=== PATIENT | female | born 1945 | race Caucasian/White ===

== ENCOUNTER 2016-09-10 13:09 | Inpatient (IN) | payer MEDICARE ==
[~2016-09-10] VITALS: Ht 147.3 cm; Wt 103.6 kg
[~2016-09-10 13:09] MED LIST: BENA25CA4 PO; BIOT50006 PO; CALCTAB36 PO; IBUP200C17 PO; LEVO125T4 PO; VITA10004 PO
[2016-09-13] MEDS ORDERED: metroNIDAZOLE 500 MG INJ 100 ML IV SCH (05:45)
[2016-09-13] MEDS ORDERED: ACETAMINOPHEN 1000 MG/100 ML VIAL IV SCH (05:45)
[2016-09-13] MEDS ORDERED: ONDANSETRON HCL 4 MG/2 ML VIAL IV PUSH SCH (05:45)
[2016-09-13] MEDS ORDERED: ceFAZolin 2 GM PREMIX 50 ML IV SCH (05:45)
[2016-09-13] MEDS ORDERED: APREPITANT 40 MG CAP PO SCH (05:45)
[2016-09-13] MEDS ORDERED: SCOPOLAMINE 1.5 MG PATCH T-DERMAL SCH (05:45)
[2016-09-13] MEDS ORDERED: METOPROLOL TARTRATE 25 MG TAB PO PRN (06:00)
[2016-09-13] MEDS ORDERED: LACTATED RINGER'S 1000 ML IV PRN (06:00)
[2016-09-13] MEDS ORDERED: CHLORHEXIDINE GLUCONATE 2 % 1 PACK (2 CLOTHS) TOPICAL PRN (06:00)
[2016-09-13] MEDS ORDERED: SODIUM CHLORID 0.9% 500 ML IV PRN (06:00)
[2016-09-13] MEDS ORDERED: INSULIN HUMAN REGULAR 1,000 UNITS/10 ML VIAL SQ PRN (06:00)
[2016-09-13] MEDS ORDERED: POVIDONE IODINE 5% (ANTISEPSIS KIT) 4 APPLICATIONS EACH NARE PRN (06:00)
[2016-09-13] MEDS ORDERED: BIOTCAP PO (07:28)
[2016-09-13 07:30] VITALS: BP 144/85; PULSE 71; RESP 16; TEMP 97.8; O2SAT 96
[2016-09-13] MEDS ORDERED: PROPOFOL 200 MG/20 ML AMP IV ONE (07:33)
[2016-09-13] MEDS ORDERED: ePHEDrine/NS 25 MG/5 ML SYR IV ONE (07:33)
[2016-09-13] MEDS ORDERED: PHENYLEPH/NS 1000 MCG/10 ML SYR IV ONE (07:34)
[2016-09-13] MEDS ORDERED: ONDANSETRON HCL 4 MG/2 ML VIAL IV PUSH ONE (07:34)
[2016-09-13] MEDS ORDERED: NEOSTIGMINE 3 MG/3 ML SYR IV ONE (07:34)
[2016-09-13] MEDS ORDERED: LACTATED RINGER'S 1000 ML INJ 2,000 ML IV ONE (07:35)
[2016-09-13] MEDS ORDERED: FAMOTIDINE 20 MG/2 ML VIAL ONE (09:36)
[2016-09-13] MEDS ORDERED: MIDAZOLAM HCL 2 MG/2 ML VIAL ONE (09:36)
[2016-09-13] MEDS ORDERED: BUPIVACAINE/EPINEPHRINE 0.25% 50 ML VIAL INFIL ONE (10:34)
[2016-09-13] MEDS ORDERED: METHYLENE BLUE 100 MG/10 ML VIAL NG ONE (10:35)
[2016-09-13] MEDS ORDERED: DO NOT ADM ANY ANTICOAGULANT DRUGS PRN (12:14)
[2016-09-13] MEDS ORDERED: Post-op Orders (for Pharmacy) MISC OTHER ONE (12:15)
[2016-09-13] MEDS ORDERED: diphenhydrAMINE HCL 50 MG/ML VIAL IV PRN (12:15)
[2016-09-13] MEDS ORDERED: ACETAMINOPHEN 325MG/HYDROcodone 7.5MG/15ML UDC PO PRN (12:15)
[2016-09-13] MEDS ORDERED: MORPHINE SULFATE 30 MG/30 ML PCA IV SCH (12:15)
[2016-09-13] MEDS ORDERED: ENALAPRILAT 1.25 MG/ML VIAL IV PUSH PRN (12:15)
[2016-09-13] MEDS ORDERED: ONDANSETRON HCL 4 MG/2 ML VIAL IV PRN (12:15)
[2016-09-13] MEDS ORDERED: SODIUM CHLORIDE 0.9% FLUSH 10 ML FLUSH IV FLUSH PRN (12:15)
[2016-09-13] MEDS ORDERED: diphenhydrAMINE HCL ELIXIR 12.5 MG/5 ML CUP PO PRN (12:15)
[2016-09-13] MEDS ORDERED: NALOXONE HCL 0.4 MG/ML AMP IV PRN (12:15)
[2016-09-13] MEDS ORDERED: fentaNYL CITRATE 250 MCG/5 ML AMP ONE (12:21)
[2016-09-13] MEDS ORDERED: *morphine SULFATE 8 MG/ML PERIprocedure ONLY ONE (12:24)
[2016-09-13] MEDS: D5-1/2 NS + KCL 20 MEQ INJ 1,000 ML IV SCH ×2 (12:30→19:35)
[2016-09-13] MEDS: METOCLOPRAMIDE HCL 10 MG/2 ML VIAL IV PUSH SCH ×2 (12:30→17:17)
--- NOTE | 2016-09-13 13:35 | MP ---
cc: SHAMIRSATNAM DATE OF 1945 DATE OF OPERATION 09/13/2016 PREOPERATIVE DIAGNOSIS Morbid obesity with a BMI of 48. POSTOPERATIVE DIAGNOSIS Morbid obesity with a BMI of 48. PROCEDURE Laparoscopic vertical sleeve gastrectomy over a 38-Citizen Of [place] ViSiGi bougie. SURGEON Satnam Persaud MD SOCIAL [employer]AC[employer]Y MEMBER DO Dr. Ed Valle was necessary for assistance during the procedure due to the complexity of the procedure. Dr. Ward was utilized for exposure and manipulation during the procedure. The educational assistant teacher provided by the hospital was utilized at the back table and management of the camera. ANESTHESIA General endotracheal anesthesia. ESTIMATED BLOOD LOSS 650 cc. FINDINGS Fatty liver, dilated veins at the GE junction. During the manipulation there was bleeding. This was controlled with hemoclips. SPECIMENS None. COMPLICATIONS None. PROCEDURE IN DETAIL The patient was brought to the operating room and placed on the operating table in supine position, bilateral sequential inflation device placed on lower extremities. General anesthesia was instituted. Antibiotics was initiated. The abdomen was prepped and draped sterilely. A point 15 cm distal to the xiphoid in the midline was anesthetized with 0.25% Marcaine with epinephrine. A skin incision was made, 5-mm OptiView port placed under direct vision and pneumoperitoneum created. Under direct vision, three 5-mm left upper quadrant, a 15-mm right upper quadrant, 5-mm right upper quadrant ports placed. Prior to placement of all ports the skin and peritoneum were anesthetized with 0.25% Marcaine with epinephrine. The patient was placed in reverse Trendelenburg position left side up, the Jasmyne-Flex retractor was placed. The left lobe of the liver was retracted. The vasculature along the greater curvature of the stomach was using harmonic scalpel starting a distance 5-cm proximal to the pylorus and carried towards the angle of His. The angle of His was taken down bluntly. Posterior ligamentous attachments were sharply . A 36-Citizen [place] ViSiGi bougie was placed at the start of the case, was placed on suction. Division of the stomach started 5 cm proximal to the pylorus and carried towards the angle of His to completely excise approximately 80% of the stomach. This was performed using an [place] Flex stapler at the pylorus. The first firing was with a black load, followed by a green load and three gold loads. All staple loads were reinforced with SeamGuard. A distance of 2 cm was left from the angle incisura and the staple line and a distance of 1 cm left from the GE junction and the staple line. The pylorus was then occluded, methylene blue tinged saline was instilled. There was no evidence of extravasation. The gastrocolic ligament was then sutured to the posterior leaflet of the SeamGuard using a 2-0 Vicryl suture in a running manner. Bleeding points were controlled with Evicel. The excised stomach was removed from the peritoneal cavity through the 15-mm port site. The fascia at the 15-mm port site was approximated with 0 Vicryl suture. The CO2 was then released, all ports were removed, all skin incisions closed with 4-0 Monocryl. The abdominal wall was cleaned. A sterile dressing was placed. The patient was awakened and taken to the recovery room. MD HELENE Nichols/SENG /12:13 PM /1:32 PM [email or web address]
[2016-09-13] MEDS: PCA - TOTAL MG MORPHINE DELIVERED PER SHIFT SCH ×2 (14:00→22:00)
[2016-09-13 16:10] VITALS: BP 124/51; PULSE 76; RESP 20; TEMP 96.4; O2SAT 96
[2016-09-13 17:01] VITALS: O2SAT 96
[2016-09-13] MEDS: RESP: ALBUTEROL 2.5 MG/3 ML NEB (SCH) INH ×3 (17:01→23:32)
[2016-09-13] MEDS: ENOXAPARIN SODIUM 40 MG/0.4 ML SYRINGE SQ SCH (17:19)
[2016-09-13] MEDS: metroNIDAZOLE 500 MG INJ 100 ML IV SCH (17:19)
[2016-09-13] MEDS: SODIUM CHLORIDE 0.9% FLUSH 10 ML FLUSH IV FLUSH SCH (19:33)
[2016-09-13 20:00] VITALS: BP 112/55; PULSE 64; RESP 18; TEMP 97.6; O2SAT 95
[2016-09-14] VITALS: BP 128/58; PULSE 65; RESP 21; TEMP 97; O2SAT 95
[2016-09-14] MEDS: metroNIDAZOLE 500 MG INJ 100 ML IV SCH ×2 (01:02→08:46)
[2016-09-14] MEDS: METOCLOPRAMIDE HCL 10 MG/2 ML VIAL IV PUSH SCH ×2 (01:02→05:27)
[2016-09-14] MEDS: RESP: ALBUTEROL 2.5 MG/3 ML NEB (SCH) INH ×6 (03:41→23:28)
[2016-09-14 04:00] VITALS: BP 105/52; PULSE 89; RESP 20; TEMP 97; O2SAT 94
[2016-09-14] MEDS: D5-1/2 NS + KCL 20 MEQ INJ 1,000 ML IV SCH ×3 (05:27→20:30)
[2016-09-14 05:35] LABS: AUTOMATED NEUTROPHIL # 6.2 TH/MM3 (1.8-7.7); BASOPHIL # 0.1 TH/MM3 (0-0.2); BASOPHIL % 0.8 % (0.0-2.0); EOSINOPHIL % 0.6 % (0.0-4.0); HEMO FLAGS DIFF FINAL; LYMPH % 12.1 % (9.0-44.0); MEAN CELL VOLUME 94.5 FL (80.0-100.0); MEAN CORPUSCULAR HEMOGLOBIN 30.4 PG (27.0-34.0); MEAN CORPUSCULAR HGB CONC 32.2 % (32.0-36.0); MONO % 9.4 % (0.0-8.0); NEUT % 77.1 % (16.0-70.0); PLATELET COUNT 172 TH/MM3 (150-450); WHITE BLOOD COUNT 8.1 TH/MM3 (4.0-11.0)
[2016-09-14] MEDS: PCA - TOTAL MG MORPHINE DELIVERED PER SHIFT SCH (06:00)
[2016-09-14 06:06] LABS: BICARBONATE 23.6 MEQ/L (21.0-32.0); MAGNESIUM 1.9 MG/DL (1.5-2.5)
[2016-09-14 06:07] LABS: POTASSIUM 4.1 MEQ/L (3.5-5.1)
[2016-09-14 08:00] VITALS: BP 130/84; PULSE 66; RESP 16; TEMP 97.5; O2SAT 92
[2016-09-14] MEDS: PANTOPRAZOLE SOD 40 MG DELAYED RELEASE TAB PO SCH (08:44)
[2016-09-14] MEDS: SODIUM CHLORIDE 0.9% FLUSH 10 ML FLUSH IV FLUSH SCH ×2 (08:47→21:00)
[2016-09-14] MEDS: ACETAMINOPHEN 325MG/HYDROcodone 7.5MG/15ML UDC PO PRN ×2 (10:36→18:20)
--- NOTE | 2016-09-14 11:48 | HHI.PR ---
Subjective Subjective Notes 70yo female POD#1 VSG. Sitting up in bed. Tolerating fluids. Voices no complaints Objective Vitals/I&O Vital Signs Date Time Temp Pulse Resp B/P Pulse Ox O2 Delivery O2 Flow Rate FiO2 09/14/16 08:29 21 09/14/16 08:00 97.5 66 16 130/84 92 09/13/16 15:30 Room Air 09/13/16 14:30 2 Labs Laboratory Tests Test 09/14/16 05:00 White Blood Count 8.1 Red Blood Count 3.60 Hemoglobin 11.0 Hematocrit 34.0 Mean Corpuscular Volume 94.5 Mean Corpuscular Hemoglobin 30.4 Mean Corpuscular Hemoglobin 32.2 Concent Red Cell Distribution Width 14.0 Platelet Count 172 Mean Platelet Volume 8.1 Neutrophils (%) (Auto) 77.1 Lymphocytes (%) (Auto) 12.1 Monocytes (%) (Auto) 9.4 Eosinophils (%) (Auto) 0.6 Basophils (%) (Auto) 0.8 Neutrophils # (Auto) 6.2 Lymphocytes # (Auto) 1.0 Monocytes # (Auto) 0.8 Eosinophils # (Auto) 0.0 Basophils # (Auto) 0.1 CBC Comment DIFF FINAL Differential Comment Sodium Level 139 Potassium Level 4.1 Chloride Level 109 Carbon Dioxide Level 23.6 Anion Gap 6 Blood Urea Nitrogen 11 Creatinine 0.55 Estimat Glomerular Filtration 110 Rate Random Glucose 123 Calcium Level 8.1 Magnesium Level 1.9 Cardiovascular: Regular Lungs: Clear Abdomen: Post-op tenderness Extremities: Perfused Wound Wound : Wound Location: Abdomen Appearance: Clean & Dry A/P Assessment and Plan Continue to increase fluids as tolerated Continue with frequent ambulation The exam, history, and the medical decision-making described in the above note were completed with the assistance of the mid-level provider. I reviewed and agree with the findings presented. I attest that I had a [id number] encounter with the patient on the same day, and personally performed and documented my assessment and findings in the medical record. Discharge Planning D/C home tomorrow Vivian Rico Sep 14, 2016 11:48 Gordo Persaud MD Oct 05, 2016 11:13
[2016-09-14 12:00] VITALS: BP 129/57; PULSE 82; RESP 16; TEMP 98.6; O2SAT 95
[2016-09-14] MEDS ORDERED: METOCLOPRAMIDE HCL 10 MG/2 ML VIAL IV PUSH PRN (12:15)
[2016-09-14] MEDS: ENOXAPARIN SODIUM 40 MG/0.4 ML SYRINGE SQ SCH (17:05)
[2016-09-14 20:00] VITALS: BP 117/55; PULSE 71; RESP 18; TEMP 98.1; O2SAT 95
[2016-09-14 20:53] VITALS: O2SAT 98
[2016-09-15] VITALS: BP 111/60; PULSE 87; RESP 18; TEMP 98.4; O2SAT 97
[2016-09-15] MEDS: RESP: ALBUTEROL 2.5 MG/3 ML NEB (SCH) INH ×3 (03:36→11:49)
[2016-09-15] MEDS: D5-1/2 NS + KCL 20 MEQ INJ 1,000 ML IV SCH (04:30)
[2016-09-15 07:40] VITALS: O2SAT 94
[2016-09-15 08:00] VITALS: BP 115/60; PULSE 83; RESP 16; TEMP 98.4; O2SAT 95
[2016-09-15] MEDS: SODIUM CHLORIDE 0.9% FLUSH 10 ML FLUSH IV FLUSH SCH (08:23)
[2016-09-15] MEDS: PANTOPRAZOLE SOD 40 MG DELAYED RELEASE TAB PO SCH (08:23)
[2016-09-15] MEDS ORDERED: LEVOTHYROXINE SODIUM 125 MCG TAB PO SCH (09:15)
--- NOTE | 2016-09-15 11:58 | HHI.PR ---
Subjective Subjective Notes POD#2 VSG Sitting up in chair, voices no complaints. Tolerating oral fluids. Passing flatus Objective Vitals/I&O Vital Signs Date Time Temp Pulse Resp B/P Pulse Ox O2 Delivery O2 Flow Rate FiO2 09/15/16 08:00 98.4 83 16 115/60 95 09/15/16 07:40 21 09/13/16 15:30 Room Air 09/13/16 14:30 2 Cardiovascular: Regular Lungs: Clear Abdomen: Post-op tenderness Extremities: Perfused Wound Wound : Wound Location: Abdomen Appearance: Clean & Dry A/P Assessment and Plan Continue to increase fluids as tolerated Continue with frequent ambulation The exam, history, and the medical decision-making described in the above note were completed with the assistance of the mid-level provider. I reviewed and agree with the findings presented. I attest that I had a [id number] encounter with the patient on the same day, and personally performed and documented my assessment and findings in the medical record. Discharge Planning D/C home today Vivian Rico Sep 15, 2016 11:58 Gordo Persaud MD Oct 05, 2016 11:14
[2016-09-15 12:00] VITALS: BP 134/69; PULSE 78; RESP 16; TEMP 97.7; O2SAT 99
== END 2016-09-15 12:52 | disposition home or self-care (01) | DRG 621 ==
LOC: HSDI 09-13 05:26 → N07B 09-13 15:51
PROVIDERS: ADMIT Surgery; ATTEND Surgery
PROC: 0DB64Z3 Excision of Stomach, Percutaneous Endoscopic Approach, Vertical (ICD-10-PCS; principal; 2016-09-13 09:40)
DX: E66.01 Morbid (severe) obesity due to excess calories (principal); K76.0 Fatty (change of) liver, not elsewhere classified; Z68.42 Body mass index [BMI] 45.0-49.9, adult; I86.8 Varicose veins of other specified sites; G47.30 Sleep apnea, unspecified; E03.9 Hypothyroidism, unspecified; M19.90 Unspecified osteoarthritis, unspecified site
CPT/HCPCS: 80048; 83735; 85025; 94150; 94640; 94664; J0131; J0690; J1650; J2250; J2270; J2370; J2405; J2710; J2765; J3010; J3480; J7120; J7613; J8501